=== PATIENT | female | born 1975 | race Caucasian/White ===

== ENCOUNTER 2017-10-11 11:06 | Outpatient (CLI) | payer OTHER ==
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
== END 2017-10-11 11:07 | disposition home or self-care (01) ==
LOC: TBSIIMAG 11:06
PROVIDERS: ATTEND Neurological Surgery
DX: M50.30 Other cervical disc degeneration, unspecified cervical region (principal); Z98.890 Other specified postprocedural states
CPT/HCPCS: 72040

== ENCOUNTER 2019-08-09 10:27 | Outpatient (CLI) | payer BC ==
--- NOTE | 2019-08-09 12:39 | ULT ---
US Thyroid STANDARD: 08/09/2019 12:00 AM CLINICAL INDICATION: Thyroid nodule follow-up.. COMPARISON: 10/14/2017 FINDINGS: Right and left thyroid lobes are normal in size and echotexture. The right thyroid lobe measures 3.2 cm and the left thyroid lobe measures 2.7cm. Thyroid is heterogeneous in appearance. There are areas of shadowing benign calcifications in both th yroid lobes. Small stable hypoechoic nodules are seen in both thyroid lobes. The largest is seen in the right at 9 mm in greatest dimension. The largest on the left measures 6 mm in greatest dimension. These nodules are well-circumscribed without suspicious calcifications and are wider than tall. No cervical lymphadenopathy is noted. IMPRESSION: Stable multinodular thyroid. The nodules would BE considered TI-RADS Category 4 lesions but given the ir small size, no further follow-up is recommended.
== END 2019-08-09 10:28 | disposition home or self-care (01) ==
LOC: SCSULT 10:27
PROVIDERS: ATTEND Internal Medicine
DX: E04.2 Nontoxic multinodular goiter (principal); E03.9 Hypothyroidism, unspecified
CPT/HCPCS: 76536

== ENCOUNTER 2019-08-20 10:51 | Outpatient (CLI) | payer BC ==
--- NOTE | 2019-08-20 13:16 | MRI ---
MRI CERVICAL SPINE WITHOUT CONTRAST: HISTORY: Cervical radicular pain. Chronic neck pain.. COMPARISON: 11/24/2016 FINDINGS: Anterior fusion plate with transvertebral body screws at C5 and C6. Associated metallic susceptibly a rtifact. There is a disc prosthesis. Appropriate T1 marrow signal intensity of the cervical vertebrae. Cervical spine vertebral body heigh t is maintained. No fracture. No significant STIR hyperintensity to suggest vertebral body edema or ligamentous injury. The visualized brain parenchyma, cervicomedullary junction, cervical cord and the upper thoracic cord have a normal size and signal intensity. C2-C3: No significant central canal stenosis. Neural foramina are patent C3-C4: Central disc protrusion causes mass effect upon the thecal sac. Mild deformity of the central cord without cord hyperintensity. Mild central canal stenosis. Right neural foramen is mildly narrowed. Mild to moderate left neural foraminal narrowing due to uncovertebral and facet hypertrophy . C4-C5: Broad based discussed by complex abuts the thecal sac. Limited evaluation due to metallic susc eptibility artifact. Based on the sagittal images there may be mild central canal stenosis. Severe right and mild to moderate left foraminal narrowing due to uncovertebral hypertrophy. C5-C6: Broad based osteophyte ridge without significant stenosis of the thecal sac. Moderate right an d moderate to severe left neural foraminal narrowing. C6-C7: Broad based disc osteophyte complex abuts the thecal sac. No significant central canal stenosi s. Right neural foramen is patent. Mild left foraminal narrowing due to uncovertebral hypertrophy. C7-T1: No significant central canal stenosis or significant neural foraminal narrowing. IMPRESSION: 1. Interval cervical fusion at C5-C6. Associated metallic susceptibility artifact. 2. Varying degrees of central canal stenosis and neural foraminal narrowing as detailed above. Transcribed Date/Time: 08/20/2019 1:30 PM
== END 2019-08-20 10:52 | disposition home or self-care (01) ==
LOC: SCSMRI 10:51
PROVIDERS: ATTEND Nurse Practitioner Family
DX: M54.12 Radiculopathy, cervical region (principal); M48.02 Spinal stenosis, cervical region; Z98.1 Arthrodesis status
CPT/HCPCS: 72141

== ENCOUNTER 2019-10-19 14:48 | Outpatient (CLI) | payer BC ==
--- NOTE | 2019-10-19 16:10 | MRI ---
EXAM: MRI lumbar spine without contrast HISTORY: Low back pain with left lower extremity radiculopathy for 3 years COMPARISON: 03/16/2017 TECHNIQUE: Multiple planar multisequence MR images were obtained of the lumbar spine without contrast . FINDINGS: The vertebral bodies and intervertebral discs demonstrate normal height and alignment without fractur e or subluxation. The prevertebral and paraspinal soft tissues are unremarkable. No marrow signal abnormality is present. The conus medullaris terminates normally at T12/L1. T12/L1: No significant posterior bulge or protrusion. No posterior facet arthrosis. No central massimo l stenosis. No neural foraminal stenosis L1/2: No significant posterior bulge or protrusion. No posterior facet arthrosis. No central canal stenosis. No neural foraminal stenosis L2/3: No significant posterior bulge or protrusion. No posterior facet arthrosis. No central canal stenosis. No neural foraminal stenosis L3/4: No significant posterior bulge or protrusion. No posterior facet arthrosis. No central canal stenosis. No neural foraminal stenosis L4/5: Small generalized concentric disc bulge. Mild bilateral posterior facet arthrosis. No central canal stenosis. Mild bilateral neural foraminal stenosis L5/S1: No significant posterior bulge or protrusion. Mild to moderate bilateral posterior facet arth rosis. No central canal stenosis. No neural foraminal stenosis IMPRESSION: Mild degenerative changes of lumbar spine as above. When compared to the prior exam, these changes ar e stable.
== END 2019-10-19 14:49 | disposition home or self-care (01) ==
LOC: SCSMRI 14:48
PROVIDERS: ATTEND Specialist
DX: M47.26 Other spondylosis with radiculopathy, lumbar region (principal)
CPT/HCPCS: 72148

== ENCOUNTER 2020-03-06 07:19 | Day surgery (SDC) | payer BC ==
[2020-03-05 12:49] VITALS: BMI 25.2
[2020-03-06 08:05] VITALS: BP 140/85; TEMP 98.2
--- NOTE | 2020-03-06 08:55 | RAD ---
CERVICAL SPINE SERIES 3 VIEWS WITH FLXION AND EXTENSION: HISTORY: Cervical radiculopathy. Postop. COMPARISON: 11/24/2016 study. FINDINGS: Anterior cervical fusion has been performed at the C5-6 level. There is no abnormal motion on the fl exion or extension views. IMPRESSION: Stable postop change. POS: [facility]
[2020-03-06] MEDS ORDERED: Iopamidol-M 300 61% 15 ML VIAL ONE (10:00)
--- NOTE | 2020-03-06 11:07 | RAD ---
PROCEDURE: XR Myelogram Cervical Spine PROVIDED CLINICAL HISTORY: Cervical radiculopathy. Neck pain. COMPARISON: None TECHNIQUE: After informed consent was obtained, the patient was placed on the fluoroscopy table in the prone pos ition. An area was marked overlying the L3-4 interspace, and the area was meticulously prepped and draped in usual sterile fashion. Skin and subcutaneous tissues were infiltrated with buffered 1% lidocaine for local anesthesia. Utili zing fluoroscopic guidance, a 22-gauge spinal needle was advanced into the central canal. The inner stylette was removed with a return of clear cerebral spinal fluid. Approximately 8 mL of Omnipaque 30 0 contrast was instilled into the thecal sac. The inner stylette was replaced, and the needle was removed. The patient was placed in a left lateral decubitus position and the table placed in [place] position to allow contrast to flow to the level of the cervical spine. Dry sterile dressing was placed at puncture site. Patient tolerated the procedure well and without im mediate complication. Patient was transported to CT for further imaging. Fluoroscopy: Dose-177.6 uGy meter squared Time-1.6 minutes IMPRESSION: Technically successful cervical myelogram with lumbar puncture at the L3-4 level
--- NOTE | 2020-03-06 11:25 | CT ---
EXAM: CT Cervical Spine W Con PROVIDED CLINICAL HISTORY: Cervical radiculopathy. Neck pain. This exam is performed post myelogram. COMPARISON: MRI cervical spine on 08/20/2019 FINDINGS: Postoperative changes related to anterior cervical fusion at the C5-6 level are noted with anterior p late and screws transfixing this level. Intradiscal prosthesis is present. No hardware complication is identified. No fracture or subluxation is seen involving the cervical spine. Paravertebral and prevertebral soft tissues have a normal appearance. C1-2 level: Central spinal canal and neural foramina are patent. C2-3 level: Central spinal canal and neural foramina are patent. C3-4 level: Mild broad-based disc bulge with central disc protrusion. This results in slight effaceme nt of the ventral subarachnoid space. Neural foramina are patent. C4-5 level: Facet hypertrophic changes and uncinate process hypertrophy are seen on the right which r esults in moderate to severe right-sided neural foraminal narrowing. Left neural foramen and central canal are patent. Minimal central disc protrusion is present. Findings are similar to prior M RI exam. C5-6 level: Postoperative changes related to anterior cervical fusion are noted. There is posterior o steophyte formation at this level which does result in effacement of the ventral subarachnoid space. Facet hypertrophic changes are present at this level. There is mild to moderate bilateral neur al foraminal narrowing greater on the right related to bony encroachment. Findings are similar to MRI exam. C6-7 level: Mild broad-based disc osteophyte complex is present. This results in narrowing of the estuardo tral subarachnoid space. Neural foramina are patent. C7-T1 level: Central spinal canal and neural foramina are patent. T1-2 level: Central spinal canal and neural foramina are patent. IMPRESSION: 1. Postoperative changes related to anterior cervical fusion C5-6 level with mild to moderate bilater al neural foraminal narrowing primarily attributable to bony encroachment. 2. Degenerative changes at the C4-5 and C6-7 levels. Prominent facet hypertrophic changes and right-s ided uncinate process hypertrophy at the C4-5 level results in moderate to severe right-sided neural foraminal narrowing.
== END 2020-03-06 09:50 | disposition home or self-care (01) ==
LOC: RAD 07:19 → EDSTATUS 08:00 → RAD 09:50
PROVIDERS: ATTEND Neurological Surgery
PROC: B02B1ZZ Computerized Tomography (CT Scan) of Spinal Cord using Low Osmolar Contrast (ICD-10-PCS; principal; 2020-03-06)
DX: M54.12 Radiculopathy, cervical region (principal); K21.9 Gastro-esophageal reflux disease without esophagitis; F41.9 Anxiety disorder, unspecified; Z79.899 Other long term (current) drug therapy; Z88.0 Allergy status to penicillin; Z88.2 Allergy status to sulfonamides; Z88.1 Allergy status to other antibiotic agents; Z88.8 Allergy status to other drugs, medicaments and biological substances; Z91.048 Other nonmedicinal substance allergy status
CPT/HCPCS: 62302; 72050; 72126; Q9967

== ENCOUNTER 2020-07-17 09:19 | Outpatient (CLI) | payer BC ==
--- NOTE | 2020-07-17 10:44 | ULT ---
ULTRASOUND ABDOMEN: HISTORY: Abdominal pain FINDINGS: There are cysts in the liver. These include a 2.8 x 2.8 x 2 cm cyst with thin septation in the left l obe, 2.4 x 2.6 x 1.8 cm cyst with thin septation in the right lobe and a 1.4 x 1.3 x 1.2 cm cyst without septation in the right lobe. No abnormal biliary ductal dilatation is seen. The gallbladder is contracted (patient not fasting). No significant gallbladder wall thickening or pe richolecystic fluid is seen. No definite gallstones are noted. The kidneys and visualized portions of the pancreas, spleen, aorta and IVC appear normal. The common duct measures 4mm in diameter. No free fluid is seen. IMPRESSION: 1. Hepatic cysts 2. Contracted gallbladder.
== END 2020-07-17 09:20 | disposition home or self-care (01) ==
LOC: SCSULT 09:19
PROVIDERS: ATTEND Internal Medicine Gastroenterology
DX: R10.9 Unspecified abdominal pain (principal); K59.09 Other constipation; K52.29 Other allergic and dietetic gastroenteritis and colitis; K76.89 Other specified diseases of liver; K82.0 Obstruction of gallbladder
CPT/HCPCS: 93975